=== PATIENT | female | born 1980 ===

== ENCOUNTER 2021-07-13 14:27 | Emergency (ER) | payer BC ==
[~2021-07-13] VITALS: Ht 172.7 cm; Wt 100.0 kg
[~2021-07-13 14:27] MED LIST: MOTRIN 600600 MG/TAB PO; PERCOCET 325 MG1 TA2 PO; ZANTAC 150MG T150 MG PO
[2021-07-13 14:33] VITALS: TEMP 98
[2021-07-13] MEDS ORDERED: CRUTCHES MC (15:46)
[2021-07-13 16:10] VITALS: BP 136/94; PULSE 86
== END 2021-07-13 16:19 | disposition home or self-care (01) ==
LOC: COL.ER 14:27
DX: S82.831A Other fracture of upper and lower end of right fibula, initial encounter for closed fracture (principal); Z28.310 Unvaccinated for COVID-19; W10.9XXA Fall (on) (from) unspecified stairs and steps, initial encounter; X50.1XXA Overexertion from prolonged static or awkward postures, initial encounter
CPT/HCPCS: L1830; L4386